=== PATIENT | male | born 1995 | race Caucasian/White ===

== ENCOUNTER 2025-03-06 08:42 | Emergency (ER) | payer SELFPAY ==
[~2025-03-06] VITALS: Ht 190.5 cm; Wt 99.8 kg
[2025-03-06] MEDS ORDERED: VIBRAMYCIN100 MG PO (09:34)
[2025-03-06] MEDS ORDERED: cefTRIAXone Sodium 500 MG VIAL IM ONE (09:35)
[2025-03-06] MEDS ORDERED: Doxycycline Hyclate 100 MG CAPSULE PO ONE (09:35)
[2025-03-06] MEDS ORDERED: TRIAMCINOLONE430 GM TD (09:57)
[2025-03-06 10:03] LABS: BILIRUBIN Negative (Negative); BLOOD Negative (Negative); CLARITY Clear (Clear); COLOR Yellow (Yellow); GLUCOSE Negative (Negative); KETONE Trace (Negative); LEUKO ESTERASE Negative (Negative); NITRITE Negative (Negative); PH 6.5 (4.5-8.0); SPECIFIC GRAVITY <= 1.005 (1.001-1.030); UROBILINOGEN 0.2 E.U./dl (0.0-1.0)
[2025-03-06 10:23] LABS: BACTERIA 1+; EPITHELIAL CELLS 0-2; WBC 0-2 wbc/hpf (0-5)
== END 2025-03-06 10:03 | disposition home or self-care (01) ==
LOC: ED 08:42
PROVIDERS: Emergency Medicine
DX: R30.0 Dysuria (principal); Z20.2 Contact with and (suspected) exposure to infections with a predominantly sexual mode of transmission